=== PATIENT | male | born 1995 | race African-American/Black ===

== ENCOUNTER 2018-04-02 10:58 | Emergency (ER) | payer MEDICAID ==
[~2018-04-02] VITALS: Ht 170.2 cm; Wt 122.7 kg
[2018-04-02] MEDS ORDERED: CefTRIAXone SODIUM 1 GM/VIAL IM ONE (12:15)
[2018-04-02] MEDS ORDERED: DOXYCYCLINE HYCLATE 100 MG CAPSULE PO ONE (12:15)
[2018-04-02] MEDS ORDERED: IBUPROFEN 800 MG TABLET PO ONE (12:15)
[2018-04-02 12:37] LABS: APPEARANCE,URINE CLEAR (CLEAR); GLUCOSE, URINE (UA) NEGATIVE (NEGATIVE); KETONES,URINE TRACE mg/dL (NEGATIVE); LEUKOCYTE ESTERASE ,URINE SMALL (NEGATIVE); NITRATE,URINE NEGATIVE (NEGATIVE); OCCULT BLOOD,URINE NEGATIVE (NEGATIVE); PH,URINE 5.5 (5.0-8.0); PROTEIN,URINE POS 1+ (NEGATIVE); UROBILINOGEN,URINE 0.2 mg/dL (<=1.0)
[2018-04-02 12:41] LABS: BILIRUBIN,URINE PRELIM. POSITIVE (NEGATIVE)
[2018-04-02 12:48] LABS: BACTERIA,URINE Few /HPF (None Seen); SQUAMOUS EPITHELIAL CELL,UR Moderate /LPF (None Seen)
[2018-04-02 13:00] VITALS: BP 148/76
== END 2018-04-02 13:08 | disposition home or self-care (01) ==
LOC: EMS 10:59
DX: N45.1 Epididymitis (principal); N45.2 Orchitis; F17.210 Nicotine dependence, cigarettes, uncomplicated
CPT/HCPCS: 76870; 81001; 87086; 96372; 99284; J0696

== ENCOUNTER 2023-09-06 13:25 | Inpatient (IN) | payer MEDICAID ==
[~2023-09-06] VITALS: Ht 175.3 cm; Wt 99.8 kg
[2023-09-06 14:10] LABS: BASOPHILS % (AUTO) 0.4 % (0.0-2.0); EOSINOPHILS % (AUTO) 1.3 % (1.0-6.0); HEMATOCRIT 41.1 % (41-53); HEMOGLOBIN 13.8 g/dL (13.5-17.5); LYMPHOCYTES # (AUTO) 1.4 K/uL (1.0-4.8); LYMPHOCYTES % (AUTO) 16.7 % (22.0-44.0); MEAN CORPUSCULAR HEMOGLOBIN 29.9 pg (26.0-34.0); MEAN CORPUSCULAR HGB CONC 33.6 G/dL (31.0-37.0); MEAN CORPUSCULAR VOLUME 89 fL (80-100); MONOCYTES # (AUTO) 0.6 K/uL (0.1-1.0); MONOCYTES % (AUTO) 7.6 % (2.0-9.0); NEUTROPHILS # (AUTO) 6.3 K/uL (1.8-7.7); PLATELET COUNT (AUTO) 260 K/uL (150-450); RED BLOOD CELL COUNT(AUTO) 4.62 MIL/uL (4.50-5.90); RED CELL DISTRIBUTION WIDTH 14.1 % (11.5-14.5); WHITE BLOOD COUNT (AUTO) 8.6 K/uL (4.5-11.0)
[2023-09-06 14:18] LABS: ALCOHOL, BLOOD (SERUM) < 3 mg/dL (0-10)
[2023-09-06 14:20] LABS: ANION GAP 10 mmol/L (8-16); CALCIUM, TOTAL 9.3 mg/dL (8.8-10.5); CARBON DIOXIDE 25 mmol/L (22-29); CHLORIDE 104 mmol/L (98-107); CREATININE 0.83 mg/dL (0.60-1.30); GLOMERULAR FILTR. RATE CALC > 60 mL/min (>60); GLUCOSE,RANDOM 86 mg/dL (70-110); POTASSIUM 3.4 mmol/L (3.5-5.1); SODIUM SERUM 139 mmol/L (136-145); UREA NITROGEN, BLOOD 14 mg/dL (7-18)
[2023-09-06 15:00] LABS: COVID AG,FIA SOURCE NASAL SWAB
[2023-09-06 15:21] LABS: SARS-COV2 (COVID) ANTIGEN,FIA Negative (Negative)
[2023-09-06 16:02] LABS: PH,URINE DRUG SCREEN 6.5 (5.0-8.0)
[2023-09-06 16:16] LABS: ALCOHOL, URINE DRUG SCREEN NEGATIVE (NEGATIVE); AMPHET/METH SCREEN,URINE NEGATIVE (NEGATIVE); BARBITURATE SCREEN, URINE NEGATIVE (NEGATIVE); BENZODIAZEPINES SCREEN,URINE POSITIVE (NEGATIVE); CANNABINOID SCREEN,URINE POSITIVE (NEGATIVE); COCAINE SCREEN,URINE NEGATIVE (NEGATIVE); METHADONE SCREEN, URINE NEGATIVE (NEGATIVE); OPIATE SCREEN,URINE POSITIVE (NEGATIVE); PHENCYCLIDINE SCREEN,URINE NEGATIVE (NEGATIVE)
[2023-09-06] MEDS ORDERED: HALOPERIDOL 5 MG TABLET PO PRN (17:30)
[2023-09-06] MEDS: POTASSIUM CHLORIDE 20 MEQ ER TABLET PO ONE (18:15)
[2023-09-06] MEDS ORDERED: PNEUMOCOCCAL VACCINE POLYVALENT 0.5 ML SYRINGE [PPSV23] IM. ONE (21:45)
[2023-09-06] MEDS: LORazepam 2 MG TABLET PO PRN (22:06)
[2023-09-06 22:30] VITALS: BP 132/72; PULSE 68; RESP 18; TEMP 97.8; O2SAT 100
[2023-09-07 08:30] LABS: FREE T4 (FREE THYROXINE) 0.97 ng/dL (0.76-1.46); POTASSIUM 3.4 mmol/L (3.5-5.1); T4 (THYROXINE) 5.9 mcg/dL (4.7-13.3); THYROID STIMULATING HORMONE 0.61 uIU/mL (0.36-3.74)
[2023-09-07 08:31] LABS: HEMOGLOBIN A1C 5.3 % (3.8-5.6)
[2023-09-07] MEDS ORDERED: GuaiFENesin/D-METHORPHAN [SUGAR-FREE] 200-20MG/10 ML SYRUP UDCUP PO PRN (13:15)
[2023-09-07] MEDS ORDERED: DOCUSATE SODIUM 100 MG CAPSULE PO PRN (13:15)
[2023-09-07] MEDS ORDERED: CloNIDine HCL 0.1 MG TABLET PO PRN (13:15)
[2023-09-07] MEDS ORDERED: ONDANSETRON HCL 4 MG TABLET PO PRN (13:15)
[2023-09-07] MEDS ORDERED: MAGNESIUM HYDROXIDE SUSPENSION 30 ML UDCUP PO PRN (13:15)
[2023-09-07] MEDS ORDERED: LOPERAMIDE HCL 2 MG CAPSULE PO PRN (13:15)
[2023-09-07] MEDS ORDERED: ACETAMINOPHEN 325 MG TABLET PO PRN (13:15)
[2023-09-07] MEDS ORDERED: IBUPROFEN 400 MG TABLET PO PRN (13:15)
[2023-09-07] MEDS ORDERED: PETROLATUM,WHITE 28 GM JELLY TP PRN (13:15)
[2023-09-07] MEDS ORDERED: MAG HYDROX/ALUMINUM HYD/SIMETH ES 30 ML SUSPENSION UDCUP PO PRN (13:15)
[2023-09-07] MEDS ORDERED: ALBUTEROL SULFATE HFA 90 MCG/PUFF 8 GM INHALER IH PRN (13:15)
[2023-09-07 16:24] VITALS: BP 127/76; PULSE 70; RESP 18; TEMP 98.1; O2SAT 99
[2023-09-07] MEDS: NICOTINE 14 MG/24 HOUR PATCH TD PRN (17:49)
[2023-09-07 20:21] VITALS: BP 138/85; PULSE 78; RESP 17; TEMP 97.6; O2SAT 99
[2023-09-07] MEDS: ZOLPIDEM TARTRATE 10 MG TABLET PO PRN (21:36)
[2023-09-08 08:07] LABS: HEMOGLOBIN A1C 5.2 % (3.8-5.6)
[2023-09-08 08:15] LABS: CHOL/HDL RATIO 4.6 (4.2-7.3); POTASSIUM 3.7 mmol/L (3.5-5.1); THYROID STIMULATING HORMONE 0.94 uIU/mL (0.36-3.74)
[2023-09-08 08:17] VITALS: BP 127/66; PULSE 87; RESP 16; TEMP 97.7; O2SAT 97
[2023-09-08 20:22] VITALS: BP 151/88; PULSE 75; RESP 16; TEMP 98; O2SAT 96
[2023-09-09 08:27] VITALS: BP 154/91; PULSE 73; RESP 18; TEMP 97.9; O2SAT 100
[2023-09-09 09:23] LABS: APPEARANCE,URINE HAZY (CLEAR); BILIRUBIN,URINE NEGATIVE (NEGATIVE); COLOR,URINE YELLOW (YELLOW); GLUCOSE, URINE (UA) NEGATIVE (NEGATIVE); KETONES,URINE NEGATIVE (NEGATIVE); LEUKOCYTE ESTERASE ,URINE MODERATE (NEGATIVE); NITRATE,URINE NEGATIVE (NEGATIVE); OCCULT BLOOD,URINE NEGATIVE (NEGATIVE); PROTEIN,URINE NEGATIVE (NEGATIVE); SPECIFIC GRAVITIY, URINE 1.024 (1.003-1.030)
[2023-09-09 09:33] LABS: ALCOHOL, URINE DRUG SCREEN NEGATIVE (NEGATIVE); AMPHET/METH SCREEN,URINE NEGATIVE (NEGATIVE); BARBITURATE SCREEN, URINE NEGATIVE (NEGATIVE); BENZODIAZEPINES SCREEN,URINE NEGATIVE (NEGATIVE); CANNABINOID SCREEN,URINE POSITIVE (NEGATIVE); COCAINE SCREEN,URINE NEGATIVE (NEGATIVE); METHADONE SCREEN, URINE NEGATIVE (NEGATIVE); OPIATE SCREEN,URINE NEGATIVE (NEGATIVE); PHENCYCLIDINE SCREEN,URINE NEGATIVE (NEGATIVE)
[2023-09-09 11:39] LABS: BACTERIA,URINE None Seen /HPF (None Seen); RBC,URINE None Seen /HPF (0-2)
== END 2023-09-09 14:08 | disposition home or self-care (01) | DRG 751 ==
LOC: EMS 13:30 → B2S 17:09
PROVIDERS: ADMIT Psychiatry & Neurology Child & Adolescent Psychiatry; ATTEND Psychiatry & Neurology Child & Adolescent Psychiatry
PROC: GZ52ZZZ Individual Psychotherapy, Cognitive (ICD-10-PCS; principal; 2023-09-07)
PROC: GZ56ZZZ Individual Psychotherapy, Supportive (ICD-10-PCS; 2023-09-07)
DX: F33.2 Major depressive disorder, recurrent severe without psychotic features (principal); R45.851 Suicidal ideations; Z91.148 Patient's other noncompliance with medication regimen for other reason; E87.6 Hypokalemia; F43.10 Post-traumatic stress disorder, unspecified; F12.10 Cannabis abuse, uncomplicated; Z20.822 Contact with and (suspected) exposure to COVID-19; G47.00 Insomnia, unspecified; F10.10 Alcohol abuse, uncomplicated; F11.10 Opioid abuse, uncomplicated; Y90.9 Presence of alcohol in blood, level not specified
CPT/HCPCS: 80048; 80061; 80307; 81001; 83036; 84132; 84436; 84439; 84443; 85025; 86592; 87086; 87186; G0480